=== PATIENT | male | born 1995 | race African-American/Black ===

== ENCOUNTER 2017-07-19 13:10 | Emergency (ER) | payer OTHER ==
[~2017-07-19] VITALS: Ht 185.4 cm; Wt 104.3 kg
--- NOTE | ~2017-07-19 | EKG ---
PATIENT: PRECIOUS THOMAS UNIT #: [id number] Ventricular Rate: 60 BPM Atrial Rate: 60 BPM P-R Interval: 142 ms QRS Duration: 86 ms Q-T Interval: 364 ms QTC Calculation(Bezet): 364 ms P [place]: 54 degrees Calculated R [place]: 101 degrees Calculated T [place]: 33 degrees Diagnosis Line: Normal sinus rhythm with sinus arrhythmia Diagnosis Line: Rightward axis Diagnosis Line: Borderline ECG Diagnosis Line: No previous ECGs available Diagnosis Line: Confirmed by MARCI QUINTANILLA MD ([id number]) on Diagnosis Line: 07/22/2017 8:22:46 AM INTERPRETING MD: SOCORRO BLANCO
--- NOTE | ~2017-07-19 | CR72 ---
[facility]. [facility] A Service of [facility] RADIOLOGY TEXT RESULTS PATIENT: PRECIOUS THOMAS LOCATION: SED : [birth year] UNIT #: [id number] AGE: [address]: Benito Bonilla MD SEX: M ORDER DR: [id number] [address] [address] [id number] MR#: [id number] Acc #: [id number] NAME: PRECIOUS THOMAS. : 1995 SEX: M STUDY DATE/TIME: 07/19/2017 13:54 UNIT: SED ROOM: STUDY DESCRIPTION: CR Chest Single View Portable Attending Physician: Benito Bonilla M.D. Ordering Physician: Benito Bonilla M.D. MEDICAL IMAGING REPORT This report is preliminary unless electronic signature is present. EXAM Portable chest INDICATION Chest pain and dizziness beginning this morning. FINDINGS A portable view of the chest was obtained. The heart size and vascularity are normal and the lungs are clear. The bones are remarkable. There is no comparison. IMPRESSION No active disease. Dictated by... Osbaldo Urban M.D. THIS IS AN ELECTRONICALLY VERIFIED REPORT Osbaldo Urban M.D. at 07/20/2017 7:06 AM Karly TD: 07/19/2017 16:03 JOB #: [id number] MEDICAL IMAGING REPORT Page 1 of 1
[2017-07-19 14:25] LABS: BASOPHIL% 0.6 % (0-2.5); EOSINOPHIL# 0.1 X10e3 (0-0.7); EOSINOPHIL% 2.2 % (0.0-7.0); HEMATOCRIT 43.3 % (38.0-50.0); HEMOGLOBIN 14.3 gm/dL (13.0-16.0); LYMPHOCYTE# 1.7 X10e3 (1.0-3.5); LYMPHOCYTE% 28.7 % (17.0-45.0); MEAN CELL VOLUME 80.7 FL (83-96); MEAN CORPUSCULAR HEMOGLOBIN 26.7 PG (28-34); MEAN CORPUSCULAR HGB CONC 33.1 g/dL (30-36); MEAN PLATELET VOLUME 6.7 FL (6.5-11.5); MONOCYTE# 0.5 X10e3 (0-1.0); MONOCYTE% 8.9 % (3.0-12.0); NEUTROPHIL# 3.4 X10e3 (1.5-7.1); NEUTROPHIL% 59.6 % (40-75); PLATELET COUNT 325 X10e3 (140-420); RED BLOOD COUNT 5.37 X10e (3.90-5.60); RED CELL DISTRIBUTION WIDTH 13.8 % (11.0-15.5); WHITE BLOOD COUNT 5.7 X10e3 (4.0-10.5)
[2017-07-19 14:32] LABS: POC - CKMB 1.8 ng/mL (0.0-7.9); POC - TROPONIN <0.05 ng/mL (<=0.05)
[2017-07-19 14:36] LABS: DIFF IND NO
[2017-07-19 14:39] LABS: PROTHROMBIN TIME (PATIENT) 11.7 SECONDS (9.5-12.4)
[2017-07-19 14:46] LABS: PARTIAL THROMBOPLASTIN TIME 30.6 SECONDS (25.6-38.1)
[2017-07-19 14:49] LABS: ALBUMIN SERUM 3.8 g/dL (3.5-5.0); ALKALINE PHOSPHATASE 61 U/L (32-92); ALT (SGPT) 10 U/L (10-40); AST (SGOT) 22 U/L (10-42); BILIRUBIN, DIRECT 0.1 mg/dL (0.0-0.2); BILIRUBIN,INDIRECT 0.9 mg/dL (0.0-0.9); BLOOD UREA NITROGEN 13 mg/dL (9-23); BUN/CREATININE RATIO 10.83; CALCIUM SERUM 9.3 mg/dL (8.4-10.2); CARBON DIOXIDE 28 mmol/L (22-31); CHLORIDE 107 mmol/L (100-111); CREATININE SERUM 1.2 mg/dL (0.6-1.4); GLOM FILT RATE Estimated 98.2 mL/min (>60); GLUCOSE FASTING 90 mg/dL (70-110); PROTEIN TOTAL SERUM 7.2 g/dL (6.0-8.3); SODIUM 140 mmol/L (135-145)
[2017-07-19 14:50] LABS: ALCOHOL BLOOD <5 mg/dL ([, 0])
== END 2017-07-19 15:04 | disposition home or self-care (01) ==
LOC: SED 13:10
PROVIDERS: Emergency Medicine
DX: R07.89 Other chest pain (principal); F17.200 Nicotine dependence, unspecified, uncomplicated
CPT/HCPCS: 36415; 71010; 80048; 80076; 82553; 83874; 84484; 85025; 85610; 85730; 93005; 96374; 99285; G0480; J1885